=== PATIENT | female | born 1975 | race Caucasian/White ===

== ENCOUNTER 2020-06-05 06:40 | Day surgery (SDC) | payer MEDICAID ==
[2020-06-05] MEDS ORDERED: Midazolam 1 MG/ML 2 ML SDV IV ONE (06:41)
[2020-06-05] MEDS ORDERED: Propofol 200 MG/20 ML SDV IV ONE (06:41)
[2020-06-05] MEDS ORDERED: fentaNYL 100 MCG/2 ML SDV IV ONE (06:41)
[2020-06-05] MEDS ORDERED: Ketorolac 30 MG/ML SDV IVPUSH ONE (06:41)
[2020-06-05] MEDS ORDERED: Ondansetron 4 MG/2 ML SDV IVPUSH ONE (06:41)
[2020-06-05] MEDS ORDERED: Sodium Chloride 0.9% 10 ML Syringe FLUSH PRN (06:45)
[2020-06-05] MEDS ORDERED: Lactated Ringers 1,000 ML IV SCH (06:45)
[2020-06-05] MEDS ORDERED: Lidocaine 1% with EPINEPHrine 1:100,000 20 ML MDV INJECT ONE (08:10)
[2020-06-05] MEDS ORDERED: Bupivacaine 0.5% 30 ML SDV INJECT ONE (08:10)
[2020-06-05] MEDS ORDERED: Acetaminophen/HYDROcodone 325-5 MG Tab PO PRN (08:39)
--- NOTE | 2020-06-05 08:45 | PCM.OPNOTE ---
- General Post-Op/Procedure Note Date of Surgery/Procedure: 06/05/20 Operative Procedure(s): left breast biopsy Findings: sub areolar cyst Pre Op Diagnosis: left breast cyst Post-Op Diagnosis: Same Anesthesia Technique: General LMA, Local (10 ml 1% lido with epi/0.5% buvipicaine) Primary Surgeon: Delfino Metz Anesthesia Provider: Brittany Redd Pathology: cyst 3x 2 cm EBL in mLs: 2 Surgical Drain/Tube Type: Scott Doherty Drain Drain/Tube Comments:: 1/8 inch trimmed from a 1 inch drain Complications: None Condition: Good Free Text/Narrative:: see dictation
--- NOTE | 2020-06-05 16:16 | OR ---
DATE OF OPERATION: 06/05/2020 SURGEON: Delfino Metz MD PROCEDURE PERFORMED: Left breast biopsy. PREOPERATIVE DIAGNOSIS: History of left breast cyst with recurrent infection. POSTOPERATIVE DIAGNOSIS: History of left breast cyst with recurrent infection. INDICATIONS FOR PROCEDURE: This is a 45-year-old white female who has had some issues with a cyst in her left breast which was documented by FNA and ultrasound in [place]. She has developed recurrent infections of this area requiring multiple aspirations and oral antibiotics. She was offered and accepted an excisional biopsy of this lesion with it in its noninfected state. DESCRIPTION OF OPERATION: After an excellent LMA anesthetic was administered via anesthesia, the patient was prepped and draped in the usual sterile manner. 10 mL of 1:1 mixture of 1% lidocaine with epinephrine 0.5% bupivacaine was used to create a field block around the lesion. A curvilinear incision was then made at the underlying edge of the nipple. Careful sharp dissection was used to dissect the cyst free from the underlying nipple edge, and then electrocautery dissection was used to dissect it free from the underlying breast tissue. The specimen measured roughly about 2 x 3 cm in size, and this was passed off the field for pathologic examination. The area was then irrigated, and several small bleeding points were controlled with electrocautery. The wound was then closed with a running subcu 4-0 Vicryl. A small 1/8 size of a Juan M drain was inserted into the wound to aid in any drainage due to the size of the cavity. The patient tolerated the procedure well. After the Steri-Strips and dressing were applied, she was taken to recovery room. /[id number] /MODL
== END 2020-06-05 10:00 | disposition home or self-care (01) ==
LOC: FB.SDS 06:40
PROVIDERS: ATTEND Surgery
DX: D24.2 Benign neoplasm of left breast (principal); N60.02 Solitary cyst of left breast; N61.0 Mastitis without abscess; E66.9 Obesity, unspecified; I10 Essential (primary) hypertension; E78.2 Mixed hyperlipidemia; E11.9 Type 2 diabetes mellitus without complications; F17.210 Nicotine dependence, cigarettes, uncomplicated; Z88.0 Allergy status to penicillin; Z68.24 Body mass index [BMI] 24.0-24.9, adult
CPT/HCPCS: 00400; 19120; 82962; J1885; J2250; J2405; J2704; J3010; J3490; J7120; 88305

== ENCOUNTER 2020-07-23 06:43 | Day surgery (SDC) | payer MEDICAID ==
[2020-07-23] MEDS ORDERED: fentaNYL 100 MCG/2 ML SDV IV ONE (06:44)
[2020-07-23] MEDS ORDERED: Midazolam 1 MG/ML 2 ML SDV IV ONE (06:44)
[2020-07-23] MEDS ORDERED: Sodium Chloride 0.9% 10 ML Syringe FLUSH PRN (06:45)
[2020-07-23] MEDS ORDERED: Lactated Ringers 1,000 ML IV SCH (06:45)
--- NOTE | 2020-07-23 12:48 | OR ---
DATE OF OPERATION: 07/23/2020 SURGEON: Roberta Harris MD PREOPERATIVE DIAGNOSIS: Visually significant cataract, left eye. POSTOPERATIVE DIAGNOSIS: Visually significant cataract, left eye. PROCEDURES PERFORMED: Phacoemulsification with intraocular lens placement, left eye. ASSISTANTS: None. ANESTHESIA: Local with sedation. COMPLICATIONS: None. BLOOD LOSS: None. IMPLANTS: An DAE PCB00, 19.0 diopter lens implanted. CDE: 5.81. DESCRIPTION OF PROCEDURE: After risks and benefits were reviewed with the patient, consent was obtained in the preoperative area, and the operative eye was marked with a surgical pen. In the preoperative area, a pledget was used to dilate the pupil consisting of a mixture of phenylephrine 10%, cyclopentolate 2%, moxifloxacin 0.5%, and bupivacaine 0.75%. The patient was taken to the operating room, where a time-out was performed, and the patient was placed under monitored anesthesia care. Topical tetracaine was used for anesthesia. The operative eye was prepped and draped for ophthalmic surgery, and the microscope was brought into position and focused. A paracentesis incision was made, followed by injection of preservative-free 1% lidocaine into the anterior chamber, followed by injection of Viscoat into the anterior chamber. A microkeratome blade was used to make a corneal limbal incision temporally. A cystotome was used to make the beginning of the capsulorrhexis, which was carried around 360 degrees in a curvilinear fashion using Utrata forceps. A Ott cannula with BSS was used to hydrodissect and hydrodelineate the nucleus. The nucleus was removed in a divide and conquer manner using phacoemulsification. Irrigation and aspiration were used to remove the remaining cortical material. Provisc was used to inflate the capsular bag, and a pre-loaded DAE PCB00, 19.0 diopter lens, serial number [id number] was injected into the capsular bag. A Sinskey hook was used to position and center the lens. Next, irrigation and aspiration was used to remove any remaining viscoelastic and cortical material from the anterior chamber. BSS on a cannula was used to inflate the anterior chamber and hydrate the wound. The wound was checked and found to be watertight. 1 mg of Moxifloxacin was injected into the anterior chamber. Drapes were removed and the eye was cleaned. A drop of brimonidine 0.15% and a drop of TobraDex was placed. The eye was shielded, and the patient was taken to the recovery room in stable condition. /[id number] ANGELICA/SOILA
== END 2020-07-23 09:20 | disposition home or self-care (01) ==
LOC: FB.SDS 06:43
PROVIDERS: ATTEND Ophthalmology
DX: E11.36 Type 2 diabetes mellitus with diabetic cataract (principal); H25.813 Combined forms of age-related cataract, bilateral; D31.31 Benign neoplasm of right choroid; H52.13 Myopia, bilateral; E11.65 Type 2 diabetes mellitus with hyperglycemia; F17.219 Nicotine dependence, cigarettes, with unspecified nicotine-induced disorders; F33.1 Major depressive disorder, recurrent, moderate; R06.2 Wheezing; E66.9 Obesity, unspecified; E78.2 Mixed hyperlipidemia; I10 Essential (primary) hypertension; Z98.890 Other specified postprocedural states; Z79.84 Long term (current) use of oral hypoglycemic drugs; Z79.899 Other long term (current) drug therapy
CPT/HCPCS: 00142; 66984; 82962; J2250; J3010; J7120

== ENCOUNTER 2020-08-06 06:45 | Day surgery (SDC) | payer MEDICAID ==
[~2020-08-06 06:45] MED LIST: Lactated Ringers 1,000 ML IV SCH; Sodium Chloride 0.9% 10 ML Syringe FLUSH PRN
[2020-08-06] MEDS ORDERED: fentaNYL 100 MCG/2 ML SDV IV ONE (06:46)
[2020-08-06] MEDS ORDERED: Midazolam 1 MG/ML 2 ML SDV IV ONE (06:46)
[2020-08-06] MEDS ORDERED: acetaZOLAMIDE 500 MG Cap.ER PO ONE (08:45)
[2020-08-06] MEDS ORDERED: acetaZOLAMIDE 500 MG Cap.ER ONE (08:52)
--- NOTE | 2020-08-06 10:57 | OR ---
DATE OF OPERATION: 08/06/2020 SURGEON: Roberta Harris MD PREOPERATIVE DIAGNOSIS: Visually significant cataract, right eye. POSTOPERATIVE DIAGNOSIS: Visually significant cataract, right eye. PROCEDURES PERFORMED: Phacoemulsification with intraocular lens placement, right eye. ASSISTANTS: None. ANESTHESIA: Local with sedation. COMPLICATIONS: None. BLOOD LOSS: None. IMPLANTS: An DAE PCB00, 16.0 diopter lens, serial number [id number] implanted. CDE: 0.52. DESCRIPTION OF PROCEDURE: After risks and benefits were reviewed with the patient, consent was obtained in the preoperative area, and the operative eye was marked with a surgical pen. In the preoperative area, a pledget was used to dilate the pupil consisting of a mixture of phenylephrine 10%, cyclopentolate 2%, moxifloxacin 0.5%, and bupivacaine 0.75%. The patient was taken to the operating room, where a time-out was performed, and the patient was placed under monitored anesthesia care. Topical tetracaine was used for anesthesia. The operative eye was prepped and draped for ophthalmic surgery, and the microscope was brought into position and focused. A paracentesis incision was made, followed by injection of preservative-free 1% lidocaine into the anterior chamber, followed by injection of Viscoat into the anterior chamber. A microkeratome blade was used to make a corneal limbal incision temporally. A cystotome was used to make the beginning of the capsulorrhexis, which was carried around 360 degrees in a curvilinear fashion using Utrata forceps. A Ott cannula with BSS was used to hydrodissect and hydrodelineate the nucleus. The nucleus was removed in a divide and conquer manner using phacoemulsification. Irrigation and aspiration were used to remove the remaining cortical material. Provisc was used to inflate the capsular bag, and a pre-loaded DAE PCB00, 16.0 diopter lens, serial number [id number] was injected into the capsular bag. A Sinskey hook was used to position and center the lens. Next, irrigation and aspiration was used to remove any remaining viscoelastic and cortical material from the anterior chamber. BSS on a cannula was used to inflate the anterior chamber and hydrate the wound. The wound was checked and found to be watertight. 1 mg of Moxifloxacin was injected into the anterior chamber. Drapes were removed and the eye was cleaned. A drop of brimonidine 0.15% and a drop of TobraDex was placed. The eye was shielded, and the patient was taken to the recovery room in stable condition. /[id number] ANGELICA/SOILA
== END 2020-08-06 09:17 | disposition home or self-care (01) ==
LOC: FB.SDS 06:45
PROVIDERS: ATTEND Ophthalmology
DX: E11.36 Type 2 diabetes mellitus with diabetic cataract (principal); H25.813 Combined forms of age-related cataract, bilateral; D31.31 Benign neoplasm of right choroid; H52.13 Myopia, bilateral; E11.65 Type 2 diabetes mellitus with hyperglycemia; F17.210 Nicotine dependence, cigarettes, uncomplicated; R06.2 Wheezing; F33.1 Major depressive disorder, recurrent, moderate; E66.9 Obesity, unspecified; E78.2 Mixed hyperlipidemia; I10 Essential (primary) hypertension; Z98.890 Other specified postprocedural states; Z79.84 Long term (current) use of oral hypoglycemic drugs; Z79.899 Other long term (current) drug therapy; Z79.82 Long term (current) use of aspirin; Z68.23 Body mass index [BMI] 23.0-23.9, adult
CPT/HCPCS: 00142; 66984; A9270; J2250; J3010; J7120; 82962; V2632

== ENCOUNTER 2021-05-03 07:29 | Emergency (ER) | payer MEDICAID ==
[2021-05-03] MEDS ORDERED: Ketorolac 30 MG/ML SDV IVPUSH STA (07:38)
[2021-05-03] MEDS ORDERED: Ondansetron 4 MG/2 ML SDV IVPUSH STA (07:38)
[2021-05-03] MEDS ORDERED: Sodium Chloride 0.9% 10 ML Syringe FLUSH PRN (07:38)
[2021-05-03] MEDS ORDERED: Morphine 2 MG/ML SYRINGE IVPUSH STA (07:38)
[2021-05-03] MEDS ORDERED: Sodium Chloride 0.9% 1,000 ML IV SCH (07:45)
[2021-05-03] MEDS ORDERED: Iopamidol 755 Mg/ML 100 ML Bottle IV ONE (07:53)
[2021-05-03] MEDS ORDERED: Alum Hydroxide/Mag Hydroxide 15 ML, Lidocaine 2% 15 ML PO ONE ×2 (08:49)
[2021-05-03] MEDS ORDERED: Metoclopramide 10 MG/2 ML SDV IVPUSH STA (08:49)
[2021-05-03] MEDS ORDERED: Pantoprazole 40 MG Vial IVPUSH ONE (08:51)
--- NOTE | 2021-05-03 09:11 | EDM.PDOC ---
ED HPI GENERAL MEDICAL PROBLEM - General Chief Complaint: Gastrointestinal Problem Stated Complaint: ABDOMINAL PAIN Time Seen by Provider: 05/03/21 07:45 Source of Information: Reports: Patient, Family History Limitations: Reports: No Limitations - History of Present Illness INITIAL COMMENTS - FREE TEXT/NARRATIVE: Patient presented to the ED because of Epigastric pain,nausea and vomiting which started at 4 am. The pain is sharp,10/10, with associated chills but no fever. There is no UTI symptoms or changes in bowel movements. She had the same problem [address] scan of the abd/pelvis apparently didn't show up anything except for a fibroid in her uterus. Abdomen Pain Score (Numeric/FACES): 10 - Related Data Allergies Allergy/AdvReac Type Severity Reaction Status Date / Time Penicillins Allergy Hives Verified 05/03/21 08:13 Home Meds: Home Meds Albuterol [Proventil HFA] 2 puff INH Q4H PRN 07/22/20 [History] Aspirin 81 mg PO DAILY 07/22/20 [History] Sertraline [Zoloft] 50 mg PO DAILY 07/22/20 [History] atorvaSTATin Calcium [Lipitor] 20 mg PO BEDTIME 07/22/20 [History] metFORMIN [Glucophage] 1,000 mg PO BIDMEALS 07/22/20 [History] Ibuprofen 400 mg PO Q4H PRN 08/05/20 [History] Metoclopramide HCl [Reglan] 10 mg PO Q8H PRN #30 tablet 05/03/21 [Rx] Omeprazole 20 mg PO DAILY #30 tablet. 05/03/21 [Rx] Past Medical History HEENT History: Reports: Cataract Cardiovascular History: Reports: High Cholesterol, Hypertension Respiratory History: Reports: Pneumonia, Recurrent, Other (See Below) Other Respiratory History: SMOKER. WHEEZING Gastrointestinal History: Reports: None Genitourinary History: Reports: None Musculoskeletal History: Reports: None Neurological History: Reports: None Psychiatric History: Reports: Depression Endocrine/Metabolic History: Reports: Diabetes, Type II, Obesity/BMI 30+ Hematologic History: Reports: None Immunologic History: Reports: None Oncologic (Cancer) History: Reports: None Other Dermatologic History: hidradenitis - Past Surgical History Head Surgeries/Procedures: Reports: None GI Surgical History: Reports: None Female Surgical History: Reports: Section, Tubal Ligation Endocrine Surgical History: Reports: None Neurological Surgical History: Reports: Laminectomy Other Musculoskeletal Surgeries/Procedures:: lumbar discectomy Oncologic Surgical History: Reports: None Social & Family History - Caffeine Use Caffeine Use: Reports: Coffee, Soda, Tea - Recreational Drug Use Recreational Drug Use: Yes Drug Use in Last 12 Months: Yes Recreational Drug Type: Reports: Marijuana/Hashish Recreational Drug Last Use: 05/02/21 ED ROS GENERAL - Review of Systems Review Of Systems: See Below Constitutional: Reports: Chills HEENT: Reports: No Symptoms Respiratory: Reports: No Symptoms Cardiovascular: Reports: No Symptoms Endocrine: Reports: No Symptoms GI/Abdominal: Reports: Abdominal Pain, Nausea, Vomiting : Reports: No Symptoms Musculoskeletal: Reports: No Symptoms, Neck Pain Skin: Reports: No Symptoms, Cyanosis Neurological: Reports: No Symptoms, Confusion, Dizziness Psychiatric: Reports: No Symptoms ED EXAM, GI/ABD - Physical Exam Exam: See Below Exam Limited By: No Limitations General Appearance: Alert, No Apparent Distress Ears: Normal External Exam, Normal Canal, Hearing Grossly Normal Nose: Normal Inspection, Normal Mucosa, No Blood Throat/Mouth: Normal Inspection, Normal Lips, Normal Teeth, Normal Gums Head: Atraumatic, Normocephalic Neck: Normal Inspection, Supple, Non-Tender, Full Range of Motion Respiratory/Chest: No Respiratory Distress, Lungs Clear, Normal Breath Sounds, No Accessory Muscle Use, Chest Non-Tender GI/Abdominal Exam: Normal Bowel Sounds, Soft, No Organomegaly, Other (epigastric tenderness) Back Exam: Normal Inspection, Full Range of Motion Extremities: Normal Inspection, Normal Range of Motion, Non-Tender Neurological: Alert Course - Vital Signs Text/Narrative:: Lab/CT abd/pelvis result was reviewed and discussed with patient NS 1 L bolus Zofran 4 mg IV x1 Reglan 10 mg IV x1 GI cocktail PO x1 Toradol 30 mg IV x1 Morphine 2 mg IV x1 Last Recorded V/S: Last Vital Signs Temp 36.2 C 05/03/21 07:29 Pulse 71 05/03/21 07:29 Resp 19 05/03/21 07:29 BP 178/100 H 05/03/21 07:29 Pulse Ox 98 05/03/21 07:29 - Orders/Labs/Meds Orders: Active Orders 24 hr Category Date Time Status Abdomen Pelvis w Cont [CT] Stat Exams 05/03/21 07:40 Taken Sodium Chloride 0.9% [Normal Saline] 1,000 ml Med 05/03/21 07:45 Active IV ASDIRECTED Sodium Chloride 0.9% [Saline Flush] Med 05/03/21 07:38 Active 10 ml FLUSH ASDIRECTED PRN Saline Lock Insert [OM.PC] Routine Oth 05/03/21 07:38 Ordered Medication Orders Sodium Chloride (Normal Saline) 1,000 mls @ 999 mls/hr IV ASDIRECTED HAYLEY Last Admin: 05/03/21 07:50 Dose: 999 mls/hr Documented by: MELINA Sodium Chloride (Sodium Chloride 0.9% 10 Ml Syringe) 10 ml FLUSH ASDIRECTED PRN PRN Reason: Keep Vein Open Labs: Laboratory Tests 05/03/21 05/03/21 05/03/21 Range/Units 07:50 07:50 07:50 WBC 11.6 H (3.0-10.3) x10-3/uL RBC 5.01 (3.60-5.20) x10(6)uL Hgb 15.3 (11.4-15.5) g/dL Hct 45.5 (34.2-48.2) % MCV 90.9 (76.7-100.5) fL MCH 30.5 (23.9-33.9) pg MCHC 33.6 (31.9-34.8) g/dL RDW 12.8 (12.3-16.5) % Plt Count 256 (151-488) x10(3)uL MPV 8.4 (7.1-12.4) fL Neut % (Auto) 70.7 (30.8-76.2) % Lymph % (Auto) 21.9 (18.4-52.1) % Rice % (Auto) 5.4 (4.4-15.7) % Eos % (Auto) 0.9 (0.6-8.1) % Baso % (Auto) 1.1 (0.2-1.5) % Neut # (Auto) 8.2 H (1.5-6.3) x10-3/uL Lymph # (Auto) 2.5 (1.0-4.4) x10-3/uL Rice # (Auto) 0.6 (0.3-1.0) x10-3/uL Eos # (Auto) 0.1 (0.0-0.8) x10-3/uL Baso # (Auto) 0.1 (0.0-0.1) x10-3/uL Sodium 139 (135-145) mmol/L Potassium 3.7 (3.5-5.3) mmol/L Chloride 100 (100-110) mmol/L Carbon Dioxide 23 (21-32) mmol/L BUN 13 (7-18) mg/dL Creatinine 0.9 (0.55-1.02) mg/dL Est Cr Clr Drug Dosing TNP Estimated GFR (MDRD) > 60 (>60) BUN/Creatinine Ratio 14.4 (9-20) Glucose 261 H (80-116) mg/dL Calcium 9.4 (8.6-10.2) mg/dL Total Bilirubin 0.6 (0.1-1.3) mg/dL AST 22 (5-25) IU/L ALT 38 H (12-36) U/L Alkaline Phosphatase 112 (56-112) IU/L Total Protein 8.5 H (6.0-8.0) g/dL Albumin 4.6 (3.5-5.2) g/dL Globulin 3.9 g/dL Albumin/Globulin Ratio 1.2 Amylase 50 (25-115) U/L Lipase 75 (73-393) U/L Urine Color (YELLOW) Urine Appearance (CLEAR) Urine pH (5.0-6.5) Ur Specific [place] (1.010-1.025) Urine Protein (NEGATIVE) mg/dL Urine Glucose (UA) (NORMAL) mg/dL Urine Ketones (NEGATIVE) mg/dL Urine Occult Blood (NEGATIVE) Urine Nitrite (NEGATIVE) Urine Bilirubin (NEGATIVE) Urine Urobilinogen (NEGATIVE) mg/dL Ur Leukocyte Esterase (NEGATIVE) Urine WBC (0-5) Ur Squamous Epith Cells (NS,R,O) Urine Bacteria (NS) 05/03/21 Range/Units 08:00 WBC (3.0-10.3) x10-3/uL RBC (3.60-5.20) x10(6)uL Hgb (11.4-15.5) g/dL Hct (34.2-48.2) % MCV (76.7-100.5) fL MCH (23.9-33.9) pg MCHC (31.9-34.8) g/dL RDW (12.3-16.5) % Plt Count (151-488) x10(3)uL MPV (7.1-12.4) fL Neut % (Auto) (30.8-76.2) % Lymph % (Auto) (18.4-52.1) % Rice % (Auto) (4.4-15.7) % Eos % (Auto) (0.6-8.1) % Baso % (Auto) (0.2-1.5) % Neut # (Auto) (1.5-6.3) x10-3/uL Lymph # (Auto) (1.0-4.4) x10-3/uL Rice # (Auto) (0.3-1.0) x10-3/uL Eos # (Auto) (0.0-0.8) x10-3/uL Baso # (Auto) (0.0-0.1) x10-3/uL Sodium (135-145) mmol/L Potassium (3.5-5.3) mmol/L Chloride (100-110) mmol/L Carbon Dioxide (21-32) mmol/L BUN (7-18) mg/dL Creatinine (0.55-1.02) mg/dL Est Cr Clr Drug Dosing Estimated GFR (MDRD) (>60) BUN/Creatinine Ratio (9-20) Glucose (80-116) mg/dL Calcium (8.6-10.2) mg/dL Total Bilirubin (0.1-1.3) mg/dL AST (5-25) IU/L ALT (12-36) U/L Alkaline Phosphatase (56-112) IU/L Total Protein (6.0-8.0) g/dL Albumin (3.5-5.2) g/dL Globulin g/dL Albumin/Globulin Ratio Amylase (25-115) U/L Lipase (73-393) U/L Urine Color Yellow (YELLOW) Urine Appearance Clear (CLEAR) Urine pH 8.0 H (5.0-6.5) Ur Specific [place] 1.015 (1.010-1.025) Urine Protein Negative (NEGATIVE) mg/dL Urine Glucose (UA) 250 H (NORMAL) mg/dL Urine Ketones 15 H (NEGATIVE) mg/dL Urine Occult Blood Negative (NEGATIVE) Urine Nitrite Negative (NEGATIVE) Urine Bilirubin Negative (NEGATIVE) Urine Urobilinogen Normal (NEGATIVE) mg/dL Ur Leukocyte Esterase Negative (NEGATIVE) Urine WBC 0-5 (0-5) Ur Squamous Epith Cells Occasional (NS,R,O) Urine Bacteria Few H (NS) Meds: Medications Generic Name Dose Route Start Last Admin Trade Name Freq PRN Reason Stop Dose Admin Sodium Chloride 1,000 mls @ 999 mls/hr 05/03/21 07:45 05/03/21 07:50 Normal Saline IV 999 mls/hr ASDIRECTED HAYLEY Administration Sodium Chloride 10 ml 05/03/21 07:38 Sodium Chloride 0.9% 10 Ml Syringe FLUSH ASDIRECTED PRN Keep Vein Open Discontinued Medications Generic Name Dose Route Start Last Admin Trade Name Freq PRN Reason Stop Dose Admin Al Hydroxide/Mg Hydroxide 15 0 ml 05/03/21 08:49 05/03/21 08:56 ml/ Lidocaine HCl 15 ml PO 05/03/21 08:50 30 ml ONETIME ONE Administration Iopamidol 100 ml 05/03/21 07:53 05/03/21 08:35 Iopamidol 755 Mg/Ml 100 Ml Bottle IV 05/03/21 07:54 100 ml . DIRECTED ONE Administration Ketorolac Tromethamine 30 mg 05/03/21 07:38 05/03/21 07:50 Ketorolac 30 Mg/Ml Sdv IVPUSH 05/03/21 07:39 30 mg NOW STA Administration Metoclopramide HCl 10 mg 05/03/21 08:49 05/03/21 08:56 Metoclopramide 10 Mg/2 Ml Sdv IVPUSH 05/03/21 08:50 10 mg NOW STA Administration Morphine Sulfate 2 mg 05/03/21 07:38 05/03/21 07:51 Morphine 2 Mg/Ml Syringe IVPUSH 05/03/21 07:39 2 mg NOW STA Administration Ondansetron HCl 4 mg 05/03/21 07:38 05/03/21 07:50 Ondansetron 4 Mg/2 Ml Sdv IVPUSH 05/03/21 07:39 4 mg NOW STA Administration Pantoprazole Sodium 80 mg 05/03/21 08:51 05/03/21 08:56 Pantoprazole 40 Mg Vial IVPUSH 05/03/21 08:52 80 mg ONETIME ONE Administration Departure - Departure Time of Disposition: 09:40 Disposition: Home, Self-Care 01 Condition: Good Clinical Impression: Gastritis, GERD (gastroesophageal reflux disease) - Discharge Information Prescriptions: Omeprazole 20 mg PO DAILY #30 tablet. Metoclopramide HCl [Reglan] 10 mg PO Q8H PRN #30 tablet PRN Reason: Nausea Instructions: Gastritis, Adult, [id number], Food Choices for Gastroesophageal Reflux Disease, Child, [id number] Referrals: Shahnaz Rodriguez [employer] [Primary Care Provider] - Forms: ED Department Discharge Additional Instructions: Please read discharge instructions on GERD/Acid reflux, Gastritis/Inflammation of the lining of the stomach Read the food and beverages that can aggravate or can cause flare up of GERD/Gastritis Avoid using NSAID like aspirin,ibuprofen and alve while being treated. Once your flare up is better you can take NSAID again Omeprazole 20 mg, 2 tablets daily for 1 week then take it once daily Sepsis Event Note (ED) - Evaluation Sepsis Screening Result: No Definite Risk - Focused Exam Vital Signs: Vital Signs Temp Pulse Resp BP Pulse Ox 05/03/21 07:29 36.2 C 71 19 178/100 H 98 - My Orders Last 24 Hours: My Active Orders 05/03/21 07:38 Sodium Chloride 0.9% [Saline Flush] 10 ml FLUSH ASDIRECTED PRN Saline Lock Insert [OM.PC] Routine 05/03/21 07:40 Abdomen Pelvis w Cont [CT] Stat 05/03/21 07:45 Sodium Chloride 0.9% [Normal Saline] 1,000 ml IV ASDIRECTED - Assessment/Plan Last 24 Hours: My Active Orders 05/03/21 07:38 Sodium Chloride 0.9% [Saline Flush] 10 ml FLUSH ASDIRECTED PRN Saline Lock Insert [OM.PC] Routine 05/03/21 07:40 Abdomen Pelvis w Cont [CT] Stat 05/03/21 07:45 Sodium Chloride 0.9% [Normal Saline] 1,000 ml IV ASDIRECTED
== END 2021-05-03 10:20 | disposition home or self-care (01) ==
LOC: FB.ED 07:29
DX: K21.9 Gastro-esophageal reflux disease without esophagitis (principal); K29.70 Gastritis, unspecified, without bleeding; E11.9 Type 2 diabetes mellitus without complications; I10 Essential (primary) hypertension; E66.9 Obesity, unspecified; Z68.30 Body mass index [BMI] 30.0-30.9, adult; Z88.0 Allergy status to penicillin; Z79.82 Long term (current) use of aspirin; Z79.899 Other long term (current) drug therapy; Z79.84 Long term (current) use of oral hypoglycemic drugs
CPT/HCPCS: 36415; 74177; 80053; 81001; 82150; 83690; 85025; 96374; 96375; 99284-25; A9270-GY; C9113; J1885; J2270; J2405; J2765; J7030; Q9967

== ENCOUNTER 2021-07-09 10:00 | Emergency (ER) | payer MEDICAID ==
[2021-07-09] MEDS ORDERED: Sodium Chloride 0.9% 10 ML Syringe FLUSH PRN (10:07)
[2021-07-09] MEDS ORDERED: Ondansetron 4 MG/2 ML SDV IVPUSH ONE (10:10)
[2021-07-09] MEDS ORDERED: Morphine 4 MG/ML VIAL IVPUSH ONE (10:10)
[2021-07-09] MEDS ORDERED: Ketorolac 30 MG/ML SDV IVPUSH ONE (10:10)
[2021-07-09] MEDS ORDERED: Sodium Chloride 0.9% 1,000 ML IV SCH (10:15)
[2021-07-09] MEDS ORDERED: Iopamidol 755 Mg/ML 100 ML Bottle IV ONE (10:27)
[2021-07-09] MEDS ORDERED: HYDROmorphone 2 MG/ML SDV IVPUSH ONE (11:21)
--- NOTE | 2021-07-09 11:28 | EDM.PDOC ---
ED HPI GENERAL MEDICAL PROBLEM - General Stated Complaint: SEVERE ABD PAIN Time Seen by Provider: 07/09/21 10:10 Source of Information: Reports: Patient History Limitations: Reports: No Limitations - History of Present Illness INITIAL COMMENTS - FREE TEXT/NARRATIVE: Patient presented to the ED because of abdominal pain which started this morning. The pain is sharp, diffuse,10/10 with associated nausea but no vomiting. there is no fever, chills, changes in bowel movements or urinary symptoms. - Related Data Allergies Allergy/AdvReac Type Severity Reaction Status Date / Time Penicillins Allergy Hives Verified 07/09/21 10:44 Home Meds: Home Meds Albuterol [Proventil HFA] 2 puff INH Q4H PRN 07/22/20 [History] Aspirin 81 mg PO DAILY 07/22/20 [History] Sertraline [Zoloft] 50 mg PO DAILY 07/22/20 [History] atorvaSTATin Calcium [Lipitor] 20 mg PO BEDTIME 07/22/20 [History] metFORMIN [Glucophage] 1,000 mg PO BIDMEALS 07/22/20 [History] Ibuprofen 400 mg PO Q4H PRN 08/05/20 [History] Metoclopramide HCl [Reglan] 10 mg PO Q8H PRN #30 tablet 05/03/21 [Rx] Omeprazole 20 mg PO DAILY #30 tablet. 05/03/21 [Rx] Acetaminophen/oxyCODONE [Percocet 325-5 MG] 1 each PO Q4H #15 tab 07/09/21 [Rx] Ciprofloxacin HCl [Cipro] 500 mg PO BID #20 tablet 07/09/21 [Rx] metroNIDAZOLE [Flagyl] 500 mg PO Q8H #30 tab 07/09/21 [Rx] predniSONE [Prednisone] 20 mg PO DAILY #10 tablet 07/09/21 [Rx] Past Medical History HEENT History: Reports: Cataract Cardiovascular History: Reports: High Cholesterol, Hypertension Respiratory History: Reports: Pneumonia, Recurrent, Other (See Below) Other Respiratory History: SMOKER. WHEEZING Gastrointestinal History: Reports: Diverticulosis, GERD Genitourinary History: Reports: None Other CHEMISTRY ASSOCIATE History: Pt states to undergo hysterectomy this month Musculoskeletal History: Reports: None Neurological History: Reports: None Psychiatric History: Reports: Depression Endocrine/Metabolic History: Reports: Diabetes, Type II, Obesity/BMI 30+ Hematologic History: Reports: None Immunologic History: Reports: None Oncologic (Cancer) History: Reports: None Other Dermatologic History: hidradenitis - Past Surgical History Head Surgeries/Procedures: Reports: None GI Surgical History: Reports: None Female Surgical History: Reports: Section, Tubal Ligation Endocrine Surgical History: Reports: None Neurological Surgical History: Reports: Laminectomy Other Musculoskeletal Surgeries/Procedures:: lumbar discectomy Oncologic Surgical History: Reports: None Social & Family History - Caffeine Use Caffeine Use: Reports: Coffee, Soda, Tea ED ROS GENERAL - Review of Systems Review Of Systems: See Below Constitutional: Reports: No Symptoms HEENT: Reports: No Symptoms Respiratory: Reports: No Symptoms Cardiovascular: Reports: No Symptoms Endocrine: Reports: No Symptoms GI/Abdominal: Reports: Abdominal Pain, Nausea Musculoskeletal: Reports: No Symptoms Skin: Reports: No Symptoms Neurological: Reports: No Symptoms ED EXAM, GI/ABD - Physical Exam Exam: See Below Exam Limited By: No Limitations General Appearance: Alert, No Apparent Distress Ears: Normal External Exam, Normal Canal, Hearing Grossly Normal Nose: Normal Inspection, Normal Mucosa, No Blood Throat/Mouth: Normal Inspection, Normal Lips, Normal Teeth, Normal Gums, Normal Oropharynx, Normal Voice Head: Atraumatic, Normocephalic Neck: Normal Inspection, Supple, Non-Tender, Full Range of Motion Respiratory/Chest: No Respiratory Distress, Lungs Clear, Normal Breath Sounds, No Accessory Muscle Use, Chest Non-Tender Cardiovascular: Normal Peripheral Pulses, Regular Rate, Rhythm, No Edema, No Gallop, No JVD, No Murmur GI/Abdominal Exam: Normal Bowel Sounds, Soft, Other (diffusely tender, no rebound or guarding) Back Exam: Normal Inspection, Full Range of Motion Extremities: Normal Inspection, Normal Range of Motion, Non-Tender Neurological: Alert, Oriented, CN II-XII Intact, Normal Cognition Course - Vital Signs Text/Narrative:: Lab/CT abd-pelvis result was reviewed and discussed with patient Toradol 30 mg IV x1 Morphine 4 mg IV x1 Dilaudid 1 mg IV x1 Zofran 4 mg IV x1 NS 1 L bolus Last Recorded V/S: Last Vital Signs Temp 36.8 C 07/09/21 11:55 Pulse 100 07/09/21 11:55 Resp 18 07/09/21 11:55 BP 105/75 07/09/21 11:55 Pulse Ox 95 07/09/21 11:55 - Orders/Labs/Meds Orders: Active Orders 24 hr Category Date Time Status Saline Lock Insert [OM.PC] Routine Oth 07/09/21 10:07 Ordered Labs: Laboratory Tests 07/09/21 07/09/21 07/09/21 Range/Units 10:30 10:30 10:30 WBC 14.0 H (3.0-10.3) x10-3/uL RBC 4.81 (3.60-5.20) x10(6)uL Hgb 14.7 (11.4-15.5) g/dL Hct 43.6 (34.2-48.2) % MCV 90.8 (76.7-100.5) fL MCH 30.6 (23.9-33.9) pg MCHC 33.7 (31.9-34.8) g/dL RDW 13.4 (12.3-16.5) % Plt Count 320 (151-488) x10(3)uL MPV 8.1 (7.1-12.4) fL Neut % (Auto) 75.1 (30.8-76.2) % Lymph % (Auto) 19.3 (18.4-52.1) % [place] % (Auto) 3.7 L (4.4-15.7) % Eos % (Auto) 0.9 (0.6-8.1) % Baso % (Auto) 1.0 (0.2-1.5) % Neut # (Auto) 10.5 H (1.5-6.3) x10-3/uL Lymph # (Auto) 2.7 (1.0-4.4) x10-3/uL [place] # (Auto) 0.5 (0.3-1.0) x10-3/uL Eos # (Auto) 0.1 (0.0-0.8) x10-3/uL Baso # (Auto) 0.1 (0.0-0.1) x10-3/uL Sodium 137 (135-145) mmol/L Potassium 5.2 D (3.5-5.3) mmol/L Chloride 101 (100-110) mmol/L Carbon Dioxide 19 L (21-32) mmol/L BUN 11 (7-18) mg/dL Creatinine 0.9 (0.55-1.02) mg/dL Est Cr Clr Drug Dosing TNP Estimated GFR (MDRD) > 60 (>60) BUN/Creatinine Ratio 12.2 (9-20) Glucose 255 H (80-116) mg/dL Calcium 9.6 (8.6-10.2) mg/dL Total Bilirubin 0.7 (0.1-1.3) mg/dL AST 35 H D (5-25) IU/L ALT 37 H (12-36) U/L Alkaline Phosphatase 143 H (56-112) IU/L Total Protein 8.4 H (6.0-8.0) g/dL Albumin 4.3 (3.5-5.2) g/dL Globulin 4.1 g/dL Albumin/Globulin Ratio 1.1 Amylase 52 (25-115) U/L Lipase 88 (73-393) U/L Urine Color (YELLOW) Urine Appearance (CLEAR) Urine pH (5.0-6.5) Ur Specific [place] (1.010-1.025) Urine Protein (NEGATIVE) mg/dL Urine Glucose (UA) (NORMAL) mg/dL Urine Ketones (NEGATIVE) mg/dL Urine Occult Blood (NEGATIVE) Urine Nitrite (NEGATIVE) Urine Bilirubin (NEGATIVE) Urine Urobilinogen (NEGATIVE) mg/dL Ur Leukocyte Esterase (NEGATIVE) Urine RBC (0-5) Urine WBC (0-5) Ur Squamous Epith Cells (NS,R,O) Urine Bacteria (NS) 07/09/21 Range/Units 11:12 WBC (3.0-10.3) x10-3/uL RBC (3.60-5.20) x10(6)uL Hgb (11.4-15.5) g/dL Hct (34.2-48.2) % MCV (76.7-100.5) fL MCH (23.9-33.9) pg MCHC (31.9-34.8) g/dL RDW (12.3-16.5) % Plt Count (151-488) x10(3)uL MPV (7.1-12.4) fL Neut % (Auto) (30.8-76.2) % Lymph % (Auto) (18.4-52.1) % [place] % (Auto) (4.4-15.7) % Eos % (Auto) (0.6-8.1) % Baso % (Auto) (0.2-1.5) % Neut # (Auto) (1.5-6.3) x10-3/uL Lymph # (Auto) (1.0-4.4) x10-3/uL [place] # (Auto) (0.3-1.0) x10-3/uL Eos # (Auto) (0.0-0.8) x10-3/uL Baso # (Auto) (0.0-0.1) x10-3/uL Sodium (135-145) mmol/L Potassium (3.5-5.3) mmol/L Chloride (100-110) mmol/L Carbon Dioxide (21-32) mmol/L BUN (7-18) mg/dL Creatinine (0.55-1.02) mg/dL Est Cr Clr Drug Dosing Estimated GFR (MDRD) (>60) BUN/Creatinine Ratio (9-20) Glucose (80-116) mg/dL Calcium (8.6-10.2) mg/dL Total Bilirubin (0.1-1.3) mg/dL AST (5-25) IU/L ALT (12-36) U/L Alkaline Phosphatase (56-112) IU/L Total Protein (6.0-8.0) g/dL Albumin (3.5-5.2) g/dL Globulin g/dL Albumin/Globulin Ratio Amylase (25-115) U/L Lipase (73-393) U/L Urine Color Yellow (YELLOW) Urine Appearance Clear (CLEAR) Urine pH 8.0 H (5.0-6.5) Ur Specific [place] 1.010 (1.010-1.025) Urine Protein Trace (NEGATIVE) mg/dL Urine Glucose (UA) 250 H (NORMAL) mg/dL Urine Ketones 15 H (NEGATIVE) mg/dL Urine Occult Blood Negative (NEGATIVE) Urine Nitrite Negative (NEGATIVE) Urine Bilirubin Negative (NEGATIVE) Urine Urobilinogen Normal (NEGATIVE) mg/dL Ur Leukocyte Esterase Negative (NEGATIVE) Urine RBC Not seen (0-5) Urine WBC Not seen (0-5) Ur Squamous Epith Cells Few H (NS,R,O) Urine Bacteria Few H (NS) Meds: Medications Discontinued Medications Generic Name Dose Route Start Last Admin Trade Name Abhiq PRN Reason Stop Dose Admin Hydromorphone HCl 1 mg 07/09/21 11:21 07/09/21 11:27 Hydromorphone 2 Mg/Ml Sdv IVPUSH 07/09/21 11:22 1 mg ONETIME ONE Administration Sodium Chloride 1,000 mls @ 999 mls/hr 07/09/21 10:15 07/09/21 10:17 Normal Saline IV 999 mls/hr ASDIRECTED HAYLEY Administration Iopamidol 100 ml 07/09/21 10:27 07/09/21 10:42 Iopamidol 755 Mg/Ml 100 Ml Bottle IV 07/09/21 10:28 100 ml . DIRECTED ONE Administration Ketorolac Tromethamine 30 mg 07/09/21 10:10 07/09/21 10:17 Ketorolac 30 Mg/Ml Sdv IVPUSH 07/09/21 10:11 30 mg ONETIME ONE Administration Morphine Sulfate 4 mg 07/09/21 10:10 07/09/21 10:18 Morphine 4 Mg/Ml Vial IVPUSH 07/09/21 10:11 4 mg ONETIME ONE Administration Ondansetron HCl 4 mg 07/09/21 10:10 07/09/21 10:18 Ondansetron 4 Mg/2 Ml Sdv IVPUSH 07/09/21 10:11 4 mg ONETIME ONE Administration Sodium Chloride 10 ml 07/09/21 10:07 Sodium Chloride 0.9% 10 Ml Syringe FLUSH ASDIRECTED PRN Keep Vein Open Departure - Departure Time of Disposition: 11:30 Disposition: Home, Self-Care 01 Condition: Good Clinical Impression: Colitis, Diverticulitis - Discharge Information Prescriptions: Ciprofloxacin HCl [Cipro] 500 mg PO BID #20 tablet metroNIDAZOLE [Flagyl] 500 mg PO Q8H #30 tab Acetaminophen/oxyCODONE [Percocet 325-5 MG] 1 each PO Q4H #15 tab predniSONE [Prednisone] 20 mg PO DAILY #10 tablet Instructions: Colitis Referrals: Shahnaz Rodriguez NP [Primary Care Provider] - Forms: ED Department Discharge Additional Instructions: Please read discharge instructions on colitis Prednisone 20 mg daily for 10 days Cipro 500 mg twice daily for 10 days Flagyl 500 mg 3 times daily for 10 days Ibuprofen 800, tylenol 1000 mg every 8 hours as needed for pain Follow up with your doctor so you can be referred to have colonoscopy with possible biopsy Sepsis Event Note (ED) - Evaluation Sepsis Screening Result: No Definite Risk - My Orders Last 24 Hours: My Active Orders 07/09/21 10:07 Saline Lock Insert [OM.PC] Routine - Assessment/Plan Last 24 Hours: My Active Orders 07/09/21 10:07 Saline Lock Insert [OM.PC] Routine
--- NOTE | 2021-07-09 13:22 | CT ---
CT ABDOMEN AND PELVIS WITH CONTRAST INDICATION: Diffuse abdominal pain. TECHNIQUE: Spiral 3.75 mm axial sections were obtained through the abdomen with 100 mL Isovue 370 at 2 mL/second with sagittal and coronal reconstructions 07/09/21 and compared with previous examination of 05/03/21. Total exam DLP was 683.98 mGy/cm. FINDINGS: Lower lung ku and pleural spaces visualized appear normal. The heart is normal in size. No pericardial effusion was seen. The liver appeared normal. The gallbladder is somewhat distended in appearance but without definite calculi. This should be correlated clinically and if gallbladder disease is suspected clinically, gallbladder ultrasound is recommended for further evaluation. The gallbladder measured 72 x 50 x 50 mm. The spleen, pancreas, common bile duct, adrenal glands, and kidneys appeared normal. No retroperitoneal mass was seen. Retroperitoneal lymphadenopathy is noted which appears stable and is nonspecific. Calcifications are noted in the abdominal aorta, iliac and femoral arteries to a greater extent than expected at this age. 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 The urinary bladder was unremarkable. What appears to be the right ovary is noted along the right lateral pelvis. Diverticulosis of the ascending, transverse, distal descending and sigmoid colon is noted without definite evidence of diverticulitis. However, at the sigmoid there is slight thickening of the wall which could represent very minimal or early diverticulitis, although a degree of colitis would also be a consideration. No evidence of bowel obstruction or free air was seen. Multiple loops of small bowel mostly in the area of the ileum showed evidence of some thickening of the murillo in a somewhat skipped appearance compatible with Crohn's disease. This should be correlated clinically as other inflammatory disease process could be present or infectious disease process. No inguinal or ventral hernia was identified. IMPRESSION: 1. Multiple loops of distal small bowel with thickened wall. Etiology indeterminate but could be on the basis of Crohn's disease or possibly infectious process - correlate clinically. 2. Unusual degree of atherosclerotic change. 3. Diverticulosis coli with slight thickening of the wall in one area - sigmoid raising question of early to mild diverticulitis versus Crohn's disease in that area. 4. Post hysterectomy. 5. Narrowing of the L4-5 disc space suggesting disc disease at that level. Report was called to Dr. Azevedo immediately after the examination was available. [facility]
== END 2021-07-09 11:55 | disposition home or self-care (01) ==
LOC: FB.ED 10:00 → SUPCPDRO 10:00 → FB.ED 11:55
DX: K52.9 Noninfective gastroenteritis and colitis, unspecified (principal); K57.32 Diverticulitis of large intestine without perforation or abscess without bleeding; K21.9 Gastro-esophageal reflux disease without esophagitis; E78.00 Pure hypercholesterolemia, unspecified; I10 Essential (primary) hypertension; E11.9 Type 2 diabetes mellitus without complications; E66.9 Obesity, unspecified; Z79.82 Long term (current) use of aspirin; Z88.0 Allergy status to penicillin; Z79.899 Other long term (current) drug therapy; Z68.21 Body mass index [BMI] 21.0-21.9, adult
CPT/HCPCS: 36415; 74177; 80053; 81001; 82150; 83690; 85025; 96374; 96375; 99284; J1170; J1885; J2270; J2405; J7030; Q9967

== ENCOUNTER 2021-07-27 04:44 | Emergency (ER) | payer MEDICAID ==
[2021-07-27] MEDS ORDERED: Sodium Chloride 0.9% 1,000 ML IV ONE (04:50)
[2021-07-27] MEDS ORDERED: Ondansetron 4 MG/2 ML SDV IVPUSH ONE (04:50)
[2021-07-27] MEDS ORDERED: Metoclopramide 10 MG/2 ML SDV IVPUSH ONE (05:58)
[2021-07-27] MEDS ORDERED: HYDROmorphone 2 MG/ML SDV IVPUSH ONE (05:58)
[2021-07-27] MEDS ORDERED: Sodium Chloride 0.9% 1,000 ML IV SCH (06:00)
[2021-07-27] MEDS ORDERED: 50% Dextrose in Water 50 ML Syringe IVPUSH PRN (06:01)
[2021-07-27] MEDS ORDERED: Glucagon,Human Recombinant 1 MG Vial IM PRN (06:01)
[2021-07-27] MEDS ORDERED: Insulin Regular, Human 100 Units/ML 3 ML Vial SUBCUT SCH (07:30)
--- NOTE | 2021-07-27 10:43 | EDM.PDOC ---
ED HPI GENERAL MEDICAL PROBLEM - General Chief Complaint: Abdominal Pain Stated Complaint: stomach pain Time Seen by Provider: 07/27/21 05:00 Source of Information: Reports: Patient History Limitations: Reports: No Limitations - History of Present Illness INITIAL COMMENTS - FREE TEXT/NARRATIVE: pt come from home w c/o gen abd pain since 1 am, describe painful cramps all across, denies any fever chills or emesis or diarrhea , had similar episode 2 weeks ago with similar sx , had then abd CT suggesting inflammatory process and was placed on Flagyl and prednisone, she did fine after that untill this morning, pt report Hx of hysterectomy and DM. abdominal Pain Score (Numeric/FACES): 10 - Related Data Allergies Allergy/AdvReac Type Severity Reaction Status Date / Time Penicillins Allergy Hives Verified 07/27/21 05:16 Home Meds: Home Meds Albuterol [Proventil HFA] 2 puff INH Q4H PRN 07/22/20 [History] Aspirin 81 mg PO DAILY 07/22/20 [History] Sertraline [Zoloft] 50 mg PO DAILY 07/22/20 [History] atorvaSTATin Calcium [Lipitor] 20 mg PO BEDTIME 07/22/20 [History] metFORMIN [Glucophage] 1,000 mg PO BIDMEALS 07/22/20 [History] Ibuprofen 400 mg PO Q4H PRN 08/05/20 [History] Past Medical History HEENT History: Reports: Cataract Cardiovascular History: Reports: High Cholesterol, Hypertension Respiratory History: Reports: Pneumonia, Recurrent, Other (See Below) Other Respiratory History: SMOKER. 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 this month Musculoskeletal History: Reports: None Neurological History: Reports: None Psychiatric History: Reports: Anxiety, Depression Endocrine/Metabolic History: Reports: Diabetes, Type II, Obesity/BMI 30+ Hematologic History: Reports: None Immunologic History: Reports: None Oncologic (Cancer) History: Reports: None Other Dermatologic History: hidradenitis - Infectious Disease History Infectious Disease History: Reports: Chicken Pox, Measles, Mumps - Past Surgical History Head Surgeries/Procedures: Reports: None GI Surgical History: Reports: None Female Surgical History: Reports: Section, Tubal Ligation Endocrine Surgical History: Reports: None Neurological Surgical History: Reports: Laminectomy Other Musculoskeletal Surgeries/Procedures:: lumbar discectomy Oncologic Surgical History: Reports: None Social & Family History - Family History Family Medical History: No Pertinent Family History - Tobacco Use Tobacco Use Status *Q: Current Every Day Tobacco User Years of Tobacco use: 20 Packs/Tins Daily: 0.5 Used Tobacco, but Quit: No Second Hand Smoke Exposure: No - Caffeine Use Caffeine Use: Reports: Coffee - Recreational Drug Use Recreational Drug Use: No ED ROS GENERAL - Review of Systems Review Of Systems: See Below Constitutional: Reports: No Symptoms. Denies: Fever, Malaise HEENT: Reports: No Symptoms Respiratory: Reports: No Symptoms Cardiovascular: Reports: No Symptoms GI/Abdominal: Reports: Abdominal Pain, Anorexia, Nausea. Denies: Constipation, Diarrhea, Vomiting : Reports: No Symptoms Musculoskeletal: Reports: No Symptoms Skin: Reports: No Symptoms Neurological: Reports: No Symptoms ED EXAM, GENERAL - Physical Exam Exam: See Below Exam Limited By: No Limitations General Appearance: Alert, Mild Distress, Moderate Distress Eye Exam: Bilateral Eye: Normal Inspection Throat/Mouth: Normal Inspection, Normal Oropharynx Head: Atraumatic, Normocephalic Neck: Normal Inspection, Supple, Non-Tender Respiratory/Chest: No Respiratory Distress, Lungs Clear Cardiovascular: Normal Peripheral Pulses, Regular Rate, Rhythm GI/Abdominal: Normal Bowel Sounds, Soft, Other (tenderness only with deep palpation. all across ). No: Guarding, Rebound Back Exam: Normal Inspection, Full Range of Motion Extremities: Normal Inspection, Normal Range of Motion Neurological: Alert, Oriented, CN II-XII Intact Skin Exam: Warm, Dry Course - Vital Signs Text/Narrative:: labs results were explained to pt, pt has ketons and glucosuria , BS at 280, electrolytes are nl, pt was hydrated with 2 liter ns, was given 10 units insulin and monitored here for 4 hrs, her BS now at 125 and pt is asymptomatic. was given earlier diludid 1 , zofran then reglan. pt likely has signs of early DKA , there are no signs of inflammatory or infectious process as her CRP / sed rate / WBCs are wnl. pt is stable for discharge home , she was asked to keep close monitoring of her BS and resume her insulin which she has missed taking the past few days. pt to follow with PCP in 2 days for re-check. Last Recorded V/S: Last Vital Signs Temp 36.0 C L 07/27/21 05:10 Pulse 81 07/27/21 09:19 Resp 18 07/27/21 09:19 BP 113/67 07/27/21 09:19 Pulse Ox 98 07/27/21 09:19 - Orders/Labs/Meds Orders: Active Orders 24 hr Category Date Time Status POC Glucose [Blood Glucose Check, Bedside] [] ONETIME Care 07/27/21 08:30 Active Dextrose 50% in Water Med 07/27/21 06:01 Active 50 ml IVPUSH ASDIRECTED PRN Glucagon,Human Recombinant [GlucaGen] Med 07/27/21 06:01 Active 1 mg IM ASDIRECTED PRN Insulin Regular, Human [HumuLIN R] Med 07/27/21 07:30 Active 10 unit SUBCUT BIDAC Sodium Chloride 0.9% [Normal Saline] 1,000 ml Med 07/27/21 06:00 Active IV ASDIRECTED Medication Orders Dextrose/Water (50% Dextrose In Water 50 Ml Syringe) 50 ml IVPUSH ASDIRECTED PRN PRN Reason: Hypoglycemia Glucagon (Glucagon,Human Recombinant 1 Mg Vial) 1 mg IM ASDIRECTED PRN PRN Reason: Hypoglycemia Sodium Chloride (Normal Saline) 1,000 mls @ 250 mls/hr IV ASDIRECTED [facility] Last Admin: 07/27/21 06:06 Dose: 250 mls/hr Documented by: GREGORY Insulin Human Regular (Insulin Regular, Human 100 Units/Ml 3 Ml Vial) 10 unit SUBCUT BIDAC [facility] Last Admin: 07/27/21 06:11 Dose: 10 unit Documented by: GREGORY Cosigned by: AYLA Labs: Laboratory Tests 07/27/21 07/27/21 07/27/21 Range/Units 05:04 05:04 05:04 WBC 10.7 H (3.0-10.3) x10-3/uL RBC 4.66 (3.60-5.20) x10(6)uL Hgb 13.9 (11.4-15.5) g/dL Hct 41.9 (34.2-48.2) % MCV 89.8 (76.7-100.5) fL MCH 29.8 (23.9-33.9) pg MCHC 33.2 (31.9-34.8) g/dL RDW 13.9 (12.3-16.5) % Plt Count 279 (151-488) x10(3)uL MPV 8.5 (7.1-12.4) fL Neut % (Auto) 73.8 (30.8-76.2) % Lymph % (Auto) 20.3 (18.4-52.1) % [place] % (Auto) 4.2 L (4.4-15.7) % Eos % (Auto) 0.6 (0.6-8.1) % Baso % (Auto) 1.1 (0.2-1.5) % Neut # (Auto) 7.9 H (1.5-6.3) x10-3/uL Lymph # (Auto) 2.2 (1.0-4.4) x10-3/uL [place] # (Auto) 0.5 (0.3-1.0) x10-3/uL Eos # (Auto) 0.1 (0.0-0.8) x10-3/uL Baso # (Auto) 0.1 (0.0-0.1) x10-3/uL ESR (0-20) mm/hr Sodium 137 (135-145) mmol/L Potassium 3.8 D (3.5-5.3) mmol/L Chloride 101 (100-110) mmol/L Carbon Dioxide 21 (21-32) mmol/L BUN 8 (7-18) mg/dL Creatinine 0.9 (0.55-1.02) mg/dL Est Cr Clr Drug Dosing TNP Estimated GFR (MDRD) > 60 (>60) BUN/Creatinine Ratio 8.9 L (9-20) Glucose 281 H (80-116) mg/dL POC Glucose (80-116) mg/dL Calcium 9.0 (8.6-10.2) mg/dL Total Bilirubin 0.6 (0.1-1.3) mg/dL AST 18 D (5-25) IU/L ALT 30 D (12-36) U/L Alkaline Phosphatase 138 H (56-112) IU/L C-Reactive Protein (0.5-0.9) mg/dL Total Protein 7.8 (6.0-8.0) g/dL Albumin 4.2 (3.5-5.2) g/dL Globulin 3.6 g/dL Albumin/Globulin Ratio 1.2 Amylase 52 (25-115) U/L Lipase (73-393) U/L Urine Color (YELLOW) Urine Appearance (CLEAR) Urine pH (5.0-6.5) Ur Specific [place] (1.010-1.025) Urine Protein (NEGATIVE) mg/dL Urine Glucose (UA) (NORMAL) mg/dL Urine Ketones (NEGATIVE) mg/dL Urine Occult Blood (NEGATIVE) Urine Nitrite (NEGATIVE) Urine Bilirubin (NEGATIVE) Urine Urobilinogen (NEGATIVE) mg/dL Ur Leukocyte Esterase (NEGATIVE) Urine RBC (0-5) Urine WBC (0-5) Ur Squamous Epith Cells (NS,R,O) Urine Bacteria (NS) 07/27/21 07/27/21 07/27/21 Range/Units 05:04 05:04 05:04 WBC (3.0-10.3) x10-3/uL RBC (3.60-5.20) x10(6)uL Hgb (11.4-15.5) g/dL Hct (34.2-48.2) % MCV (76.7-100.5) fL MCH (23.9-33.9) pg MCHC (31.9-34.8) g/dL RDW (12.3-16.5) % Plt Count (151-488) x10(3)uL MPV (7.1-12.4) fL Neut % (Auto) (30.8-76.2) % Lymph % (Auto) (18.4-52.1) % [place] % (Auto) (4.4-15.7) % Eos % (Auto) (0.6-8.1) % Baso % (Auto) (0.2-1.5) % Neut # (Auto) (1.5-6.3) x10-3/uL Lymph # (Auto) (1.0-4.4) x10-3/uL [place] # (Auto) (0.3-1.0) x10-3/uL Eos # (Auto) (0.0-0.8) x10-3/uL Baso # (Auto) (0.0-0.1) x10-3/uL ESR 10 (0-20) mm/hr Sodium (135-145) mmol/L Potassium (3.5-5.3) mmol/L Chloride (100-110) mmol/L Carbon Dioxide (21-32) mmol/L BUN (7-18) mg/dL Creatinine (0.55-1.02) mg/dL Est Cr Clr Drug Dosing Estimated GFR (MDRD) (>60) BUN/Creatinine Ratio (9-20) Glucose (80-116) mg/dL POC Glucose (80-116) mg/dL Calcium (8.6-10.2) mg/dL Total Bilirubin (0.1-1.3) mg/dL AST (5-25) IU/L ALT (12-36) U/L Alkaline Phosphatase (56-112) IU/L C-Reactive Protein < 0.2 L (0.5-0.9) mg/dL Total Protein (6.0-8.0) g/dL Albumin (3.5-5.2) g/dL Globulin g/dL Albumin/Globulin Ratio Amylase (25-115) U/L Lipase 94 (73-393) U/L Urine Color (YELLOW) Urine Appearance (CLEAR) Urine pH (5.0-6.5) Ur Specific [place] (1.010-1.025) Urine Protein (NEGATIVE) mg/dL Urine Glucose (UA) (NORMAL) mg/dL Urine Ketones (NEGATIVE) mg/dL Urine Occult Blood (NEGATIVE) Urine Nitrite (NEGATIVE) Urine Bilirubin (NEGATIVE) Urine Urobilinogen (NEGATIVE) mg/dL Ur Leukocyte Esterase (NEGATIVE) Urine RBC (0-5) Urine WBC (0-5) Ur Squamous Epith Cells (NS,R,O) Urine Bacteria (NS) 07/27/21 07/27/21 07/27/21 Range/Units 05:30 08:22 10:21 WBC (3.0-10.3) x10-3/uL RBC (3.60-5.20) x10(6)uL Hgb (11.4-15.5) g/dL Hct (34.2-48.2) % MCV (76.7-100.5) fL MCH (23.9-33.9) pg MCHC (31.9-34.8) g/dL RDW (12.3-16.5) % Plt Count (151-488) x10(3)uL MPV (7.1-12.4) fL Neut % (Auto) (30.8-76.2) % Lymph % (Auto) (18.4-52.1) % [place] % (Auto) (4.4-15.7) % Eos % (Auto) (0.6-8.1) % Baso % (Auto) (0.2-1.5) % Neut # (Auto) (1.5-6.3) x10-3/uL Lymph # (Auto) (1.0-4.4) x10-3/uL [place] # (Auto) (0.3-1.0) x10-3/uL Eos # (Auto) (0.0-0.8) x10-3/uL Baso # (Auto) (0.0-0.1) x10-3/uL ESR (0-20) mm/hr Sodium (135-145) mmol/L Potassium (3.5-5.3) mmol/L Chloride (100-110) mmol/L Carbon Dioxide (21-32) mmol/L BUN (7-18) mg/dL Creatinine (0.55-1.02) mg/dL Est Cr Clr Drug Dosing Estimated GFR (MDRD) (>60) BUN/Creatinine Ratio (9-20) Glucose (80-116) mg/dL POC Glucose 196 H 125 H (80-116) mg/dL Calcium (8.6-10.2) mg/dL Total Bilirubin (0.1-1.3) mg/dL AST (5-25) IU/L ALT (12-36) U/L Alkaline Phosphatase (56-112) IU/L C-Reactive Protein (0.5-0.9) mg/dL Total Protein (6.0-8.0) g/dL Albumin (3.5-5.2) g/dL Globulin g/dL Albumin/Globulin Ratio Amylase (25-115) U/L Lipase (73-393) U/L Urine Color Yellow (YELLOW) Urine Appearance Clear (CLEAR) Urine pH 7.0 H (5.0-6.5) Ur Specific [place] 1.015 (1.010-1.025) Urine Protein Negative (NEGATIVE) mg/dL Urine Glucose (UA) >1000 H (NORMAL) mg/dL Urine Ketones 15 H (NEGATIVE) mg/dL Urine Occult Blood Negative (NEGATIVE) Urine Nitrite Negative (NEGATIVE) Urine Bilirubin Negative (NEGATIVE) Urine Urobilinogen Normal (NEGATIVE) mg/dL Ur Leukocyte Esterase Negative (NEGATIVE) Urine RBC 0-5 (0-5) Urine WBC 0-5 (0-5) Ur Squamous Epith Cells Few H (NS,R,O) Urine Bacteria Few H (NS) Meds: Medications Generic Name Dose Route Start Last Admin Trade Name Olga Lidia PRN Reason Stop Dose Admin Dextrose/Water 50 ml 07/27/21 06:01 50% Dextrose In Water 50 Ml Syringe IVPUSH ASDIRECTED PRN Hypoglycemia Glucagon 1 mg 07/27/21 06:01 Glucagon,Human Recombinant 1 Mg Vial IM ASDIRECTED PRN Hypoglycemia Sodium Chloride 1,000 mls @ 250 mls/hr 07/27/21 06:00 07/27/21 06:06 Normal Saline IV 250 mls/hr ASDIRECTED HAYLEY Administration Insulin Human Regular 10 unit 07/27/21 07:30 07/27/21 06:11 Insulin Regular, Human 100 Units/Ml 3 Ml Vial SUBCUT 10 unit BIDAC [facility]AYLEY Administration Discontinued Medications Generic Name Dose Route Start Last Admin Trade Name Olga Lidia PRN Reason Stop Dose Admin Hydromorphone HCl 1 mg 07/27/21 05:58 07/27/21 06:05 Hydromorphone 2 Mg/Ml Sdv IVPUSH 07/27/21 05:59 1 mg ONETIME ONE Administration Sodium Chloride 1,000 mls @ 999 mls/hr 07/27/21 04:50 07/27/21 04:55 Normal Saline IV 07/27/21 05:50 999 mls/hr .BOLUS ONE Administration Metoclopramide HCl 10 mg 07/27/21 05:58 07/27/21 06:02 Metoclopramide 10 Mg/2 Ml Sdv IVPUSH 07/27/21 05:59 10 mg ONETIME ONE Administration Ondansetron HCl 4 mg 07/27/21 04:50 07/27/21 04:55 Ondansetron 4 Mg/2 Ml Sdv IVPUSH 07/27/21 04:51 4 mg ONETIME ONE Administration Departure - Departure Time of Disposition: 10:47 Disposition: Home, Self-Care 01 Clinical Impression: Abdominal pain - Discharge Information Referrals: PCP,None [Primary Care Provider] - Sepsis Event Note (ED) - Evaluation Sepsis Screening Result: No Definite Risk - Focused Exam Vital Signs: Vital Signs Temp Pulse Resp BP Pulse Ox 07/27/21 09:19 81 18 113/67 98 07/27/21 05:10 36.0 C L 91 20 166/93 H 100 - My Orders Last 24 Hours: My Active Orders 07/27/21 06:00 Sodium Chloride 0.9% [Normal Saline] 1,000 ml IV ASDIRECTED 07/27/21 06:01 Dextrose 50% in Water 50 ml IVPUSH ASDIRECTED PRN Glucagon,Human Recombinant [GlucaGen] 1 mg IM ASDIRECTED PRN 07/27/21 07:30 Insulin Regular, Human [HumuLIN R] 10 unit SUBCUT BIDAC 07/27/21 08:30 POC Glucose [Blood Glucose Check, Bedside] [RC] ONETIME - Assessment/Plan Last 24 Hours: My Active Orders 07/27/21 06:00 Sodium Chloride 0.9% [Normal Saline] 1,000 ml IV ASDIRECTED 07/27/21 06:01 Dextrose 50% in Water 50 ml IVPUSH ASDIRECTED PRN Glucagon,Human Recombinant [GlucaGen] 1 mg IM ASDIRECTED PRN 07/27/21 07:30 Insulin Regular, Human [HumuLIN R] 10 unit SUBCUT BIDAC 07/27/21 08:30 POC Glucose [Blood Glucose Check, Bedside] [RC] ONETIME
== END 2021-07-27 11:15 | disposition home or self-care (01) ==
LOC: FB.ED 04:44
DX: R10.84 Generalized abdominal pain (principal); E11.9 Type 2 diabetes mellitus without complications; I10 Essential (primary) hypertension; Z79.84 Long term (current) use of oral hypoglycemic drugs; Z88.0 Allergy status to penicillin; Z79.82 Long term (current) use of aspirin; Z72.0 Tobacco use; Z79.899 Other long term (current) drug therapy
CPT/HCPCS: 36415; 80053; 81001; 82150; 82947; 83690; 85025; 85651; 86140; 96374; 96375; 99284; J1170; J1815; J2405; J2765; J7030

== ENCOUNTER 2022-02-09 01:37 | Emergency (ER) | payer MEDICAID | END 2022-02-09 02:31 | disposition home or self-care (01) | LOC: FB.ED 01:37 | DX: I89.0 Lymphedema, not elsewhere classified (principal); G62.9 Polyneuropathy, unspecified | CPT/HCPCS: 99281; 99283 ==